=== PATIENT | male | born 1990 | race Two or more races ===

== ENCOUNTER 2016-07-29 09:37 | Emergency (ER) | payer OTHER ==
[2016-07-29 09:44] VITALS: BP 134/77; PULSE 86; TEMP 98.2; BMI 33.5
--- NOTE | 2016-07-29 10:41 | PDOC ---
History of Present Illness - General History Source: Patient - History of Present Illness Timing/Duration: reports: other Associated Symptoms: reports: chest pain/soreness, cough, nasal congestion, nasal drainage. denies: earache, fever/chills, shortness of breath <Carly AquinoJacy - Last Filed: 07/29/16 11:04> <Ann-MariePraveen - Last Filed: 07/29/16 20:22> - General Chief Complaint: Chest Pain Stated Complaint: CHEST PRESSURE Time Seen by Provider: 07/29/16 10:35 Past History - Past Medical History Other medical history: PT DENIES MEDICAL HX - Psycho/Social/Smoking Cessation Hx Suicidal Ideation: No Smoking History: Never smoked Hx Alcohol Use: Yes (OCCASIONALLY) Drug/Substance Use Hx: No Substance Use Type: None <MilesAmbika - Last Filed: 07/29/16 11:04> <Praveen Jacobsen - Last Filed: 07/29/16 20:22> - Past Medical History Allergies/Adverse Reactions: Allergies Allergy/AdvReac Type Severity Reaction Status Date / Time No Known Allergies Allergy Verified 07/29/16 09:44 Home Medications: Ambulatory Orders NK [No Known Home Medication] 07/29/16 Review of Systems - Review of Systems Constitutional: No: Chills, Fever HEENTM: Yes: Nose Congestion Respiratory: Yes: Cough. No: Shortness of Breath, Wheezing Cardiac (ROS): Yes: Chest Pain <[place]RomiKimberlynCherelle Last Filed: 07/29/16 11:04> *Physical Exam - Vital Signs Last Vital Signs Temp Pulse Resp BP Pulse Ox 98.2 F 86 18 134/77 96 07/29/16 09:41 07/29/16 09:41 07/29/16 09:41 07/29/16 09:41 07/29/16 09:41 - Physical Exam General Appearance: Yes: Appropriately Dressed. No: Apparent Distress HEENT: positive: Normal Voice Neck: positive: Supple Respiratory/Chest: positive: Lungs Clear, Normal Breath Sounds. negative: Respiratory Distress Cardiovascular: positive: Regular Rate, S1, S2 Integumentary: positive: Dry, Warm Neurologic: positive: Fully Oriented, Alert, Normal Mood/Affect <Ambika Aquino Last Filed: 07/29/16 11:04> - Vital Signs Last Vital Signs Temp Pulse Resp BP Pulse Ox 98.2 F 86 18 134/77 96 07/29/16 09:41 07/29/16 09:41 07/29/16 09:41 07/29/16 09:41 07/29/16 09:41 <Praveen Jacobsen - Last Filed: 07/29/16 20:22> ED Treatment Course - RADIOLOGY Radiology Studies Ordered: Category Date Time Status CHEST PA & LAT [RAD] Stat Radiology 07/29/16 10:35 Ordered <Ambika Aquino - Last Filed: 07/29/16 11:04> Medical Decision Making - Medical Decision Making 07/29/16 11:04 26-year-old male, denies any past medical history, here with pleuritic chest pain in the setting of URI with non-productive cough x 2 days. Denies sob as documented at triage and no f/c. Pt well ivy in ED w/ unremarkable exam. EKG and CXR neg. Stable for dc w/ symptomatic tx for uri. <Ambika Aquino - Last Filed: 07/29/16 11:04> - Medical Decision Making 07/29/16 20:22 The patient was seen and evaluated in conjunction with MELISSA Hines under my direct supervision, ancillary studies were reviewed. I agree with the plan as outlined by MELISSA Aquino . <Praveen Jacobsen - Last Filed: 07/29/16 20:22> *DC/Admit/Observation/Transfer <Ambika Aquino - Last Filed: 07/29/16 11:04> <Praveen Jacobsen - Last Filed: 07/29/16 20:22> Diagnosis at time of Disposition: URI (upper respiratory infection) Qualifiers: URI type: unspecified viral URI Qualified Code(s): J06.9 - Acute upper respiratory infection, unspecified - Discharge Dispostion Disposition: HOME Condition at time of disposition: Good - Patient Instructions Printed Discharge Instructions: DI for Viral Upper Respiratory Infection -- Adult - Post Discharge Activity Work/School Note: Back to Work
--- NOTE | 2016-07-29 11:21 | PDOC ---
*Physical Exam - Vital Signs Last Vital Signs Temp Pulse Resp BP Pulse Ox 98.2 F 86 18 134/77 96 07/29/16 09:41 07/29/16 09:41 07/29/16 09:41 07/29/16 09:41 07/29/16 09:41 ED Treatment Course - RADIOLOGY Radiology Studies Ordered: Category Date Time Status CHEST PA & LAT [RAD] Stat Radiology 07/29/16 10:35 Completed *DC/Admit/Observation/Transfer Diagnosis at time of Disposition: URI (upper respiratory infection) Qualifiers: URI type: unspecified viral URI Qualified Code(s): J06.9 - Acute upper respiratory infection, unspecified - Discharge Dispostion Disposition: HOME Condition at time of disposition: Good - Referrals - Patient Instructions Printed Discharge Instructions: DI for Viral Upper Respiratory Infection -- Adult - Post Discharge Activity Work/School Note: Back to Work
--- NOTE | 2016-07-30 17:09 | EKG ---
Test Reason : Blood Pressure : / mmHG Vent. Rate : 088 BPM Atrial Rate : 088 BPM P-R Int : 192 ms QRS Dur : 088 ms QT Int : 330 ms P-R-T Axes : 067 067 041 degrees QTc Int : 399 ms NORMAL SINUS RHYTHM NORMAL ECG NO PREVIOUS ECGS AVAILABLE Confirmed by YASMIN BUENO MD ([id number]) on 07/30/2016 5:09:24 PM Referred By: Confirmed By:YASIMN BUENO MD
== END 2016-07-29 11:10 | disposition home or self-care (01) ==
LOC: JER 09:37
DX: J06.9 Acute upper respiratory infection, unspecified (principal)
CPT/HCPCS: 71020-TC; 93005; 93010; 99282-25

== ENCOUNTER 2017-03-10 19:46 | Emergency (ER) | payer SELFPAY ==
[2017-03-10 19:55] VITALS: BP 159/81; PULSE 87; TEMP 98.4; BMI 33.5
--- NOTE | 2017-03-10 20:23 | PDOC ---
History of Present Illness - General Chief Complaint: Injury Stated Complaint: ANKLE INJURY Time Seen by Provider: 03/10/17 19:55 History Source: Patient Exam Limitations: No Limitations - History of Present Illness Initial Comments: 03/10/17 21:11 Patient is a 27-year-old male with past medical history of left ankle injury who presents to the emergency department today complaining that he has left ankle pain after rolling his ankle yesterday. Patient states that it hurts to touch the inside portion of his ankle. He is tried taking Tylenol and Motrin with no relief. Denies fevers, chills, numbness and tingling, weakness, gait disturbance. Past History - Travel Traveled outside of the country in the last 30 days: No Close contact w/someone who was outside of country & ill: No - Past Medical History Allergies/Adverse Reactions: Allergies Allergy/AdvReac Type Severity Reaction Status Date / Time No Known Allergies Allergy Verified 03/10/17 19:51 Home Medications: Ambulatory Orders NK [No Known Home Medication] 07/29/16 Other medical history: ?arthritis - Suicide/Smoking/Psychosocial Hx Smoking History: Never smoked Hx Alcohol Use: Yes (OCCASIONALLY) Drug/Substance Use Hx: No Substance Use Type: None Review of Systems - Review of Systems Able to Perform ROS?: Yes Comments:: 03/10/17 21:17 CONSTITUTIONAL: Absent: fever, chills, diaphoresis, generalized weakness, malaise, loss of appetite HEENT: Absent: rhinorrhea, nasal congestion, throat pain, throat swelling, difficulty swallowing, mouth swelling, ear pain, eye pain, visual Changes CARDIOVASCULAR: Absent: chest pain, loss of consciousness, palpitations, irregular heart rate, peripheral edema RESPIRATORY: Absent: cough, shortness of breath, dyspnea with exertion, orthopnea, wheezing, stridor, hemoptysis GASTROINTESTINAL: Absent: abdominal pain, abdominal distension, nausea, vomiting, diarrhea, constipation, melena, hematochezia GENITOURINARY: Absent: dysuria, frequency, urgency, hesitancy, hematuria, flank pain, genital pain MUSCULOSKELETAL: Present: L ankle pain/swelling. Absent: arthralgia, joint swelling SKIN: Absent: rash, itching, pallor HEMATOLOGIC/IMMUNOLOGIC: Absent: easy bleeding, easy bruising, lymphadenopathy, frequent infections ENDOCRINE: Absent: unexplained weight gain, unexplained weight loss, heat intolerance, cold intolerance NEUROLOGIC: Absent: headache, focal weakness or paresthesias, dizziness, unsteady gait, seizure, mental status changes, bladder or bowel incontinence PSYCHIATRIC: Absent: anxiety, depression, suicidal or homicidal ideation, hallucinations. Is the patient limited [place]i proficient: No *Physical Exam - Vital Signs Last Vital Signs Temp Pulse Resp BP Pulse Ox 98.4 F 87 18 159/81 97 03/10/17 19:52 03/10/17 19:52 03/10/17 19:52 03/10/17 19:52 03/10/17 19:52 - Physical Exam Comments: 03/10/17 21:23 GENERAL: Well developed, well nourished. Awake and alert. No acute distress. HEENT: Normocephalic, atraumatic. PERRLA, EOMI. No conjunctival pallor. Sclera are non- icteric. Moist mucous membranes. Oropharynx is clear. NECK: Supple. Full ROM. No JVD. Carotid pulses 2+ and symmetric, without bruits. No thyromegaly. No lymphadenopathy. CARDIOVASCULAR: Regular rate and rhythm. No murmurs, rubs, or gallops. Distal pulses are 2+ and symmetric. PULMONARY: No evidence of respiratory distress. Lungs clear to auscultation bilaterally. No wheezing, rales or rhonchi. ABDOMINAL: Soft. Non-tender. Non-distended. No rebound or guarding. No organomegaly. Normoactive bowel sounds. MUSCULOSKELETAL Normal range of motion at all joints. No bony deformities or tenderness. No CVA tenderness. EXTREMITIES: Swelling and bruising to the medial malleolus of the L ankle. TTP of the L medial malleolus and calcanious bone. No cyanosis. No clubbing. No calf tenderness. SKIN: Warm and dry. Normal capillary refill. No rashes. No jaundice. NEUROLOGICAL: Alert, awake, appropriate. Cranial nerves 2-12 intact. No deficits to light touch and temperature in face, upper extremities and lower extremities. No motor deficits in the in face, upper extremities and lower extremities. Normoreflexic in the upper and lower extremities. Normal speech. Toes are down- going bilaterally. Gait is normal without ataxia. PSYCHIATRIC: Cooperative. Good eye contact. Appropriate mood and affect. Medical Decision Making - Medical Decision Making 03/10/17 21:29 Pt. is a 27 y/o male with presents with two days of ankle pain. Given physical exam findings, will obtain x-ray. Tylenol given for pain. 03/10/17 22:03 X-ray shows no acute fracture. Old injury noted on the fibula. Most likely an ankle sprain. Will d.c home with instructions to take care of a sprain and ortho follow up. *DC/Admit/Observation/Transfer Diagnosis at time of Disposition: Left ankle sprain Qualifiers: Encounter type: initial encounter Involved ligament of ankle: unspecified ligament Qualified Code(s): S93.402A - Sprain of unspecified ligament of left ankle, initial encounter - Discharge Dispostion Disposition: HOME Condition at time of disposition: Good Admit: No - Referrals Referrals: Sarbjit Orta MD [Staff Physician] - - Patient Instructions Printed Discharge Instructions: DI for Ankle Sprain Additional Instructions: Your x-ray today was negative for fracture. You do have a left ankle sprain. Wear the Dmitriy wrap for the next week. Keep her leg elevated when resting. Ice the area for the next 48 hours. You should ice it for 20 minute intervals 5 times a day. Take 800 mg of ibuprofen 3 times a day to help with the swelling. Follow-up with Dr. Orta, orthopedics, if her symptoms do not get better within 3 -5 days. Return to the emergency department if you have worsening pain, weakness in her leg, numbness and tingling, or any changes in your symptoms. - Post Discharge Activity Forms/Work/School Notes: Back to Work
[2017-03-10] MEDS ORDERED: IBUPROFEN 400 MG TABLET (FP) PO ONE (21:49)
== END 2017-03-10 21:55 | disposition home or self-care (01) ==
LOC: JERFT 19:46
DX: S93.402A Sprain of unspecified ligament of left ankle, initial encounter (principal); W50.2XXA Accidental twist by another person, initial encounter; Y93.89 Activity, other specified; Y92.89 Other specified places as the place of occurrence of the external cause; Y99.8 Other external cause status
CPT/HCPCS: 73610-TC-LT; 73630-TC-LT; 99281-25